=== PATIENT | female | born 1975 | race Caucasian/White ===

== ENCOUNTER 2023-01-18 06:54 | Emergency (ER) | payer BC ==
[2023-01-18] MEDS ORDERED: Ondansetron 4 MG/2 ML SDV IVPUSH ONE (06:56)
[2023-01-18] MEDS ORDERED: Ketorolac 30 MG/ML SDV IVPUSH ONE (06:56)
[2023-01-18] MEDS ORDERED: Sodium Chloride 0.9% 1,000 ML IV ONE (06:56)
[2023-01-18 08:36] LABS: POTASSIUM,K 3.3 mmol/L (3.5-5.1)
[2023-01-18 09:38] VITALS: BP 143/92; PULSE 82
== END 2023-01-18 09:41 | disposition home or self-care (01) ==
LOC: MW.ED 06:54
DX: N13.2 Hydronephrosis with renal and ureteral calculous obstruction (principal); Z91.018 Allergy to other foods
CPT/HCPCS: 36415; 74176; 80053; 81001; 81025; 85025; 96361; 96374; 99284; J1885; J2405; J7030